=== PATIENT | male | born 1980 | race Two or more races ===

== ENCOUNTER 2025-10-01 18:35 | Emergency (ER) | payer MEDICAID, OTHER ==
[~2025-10-01] VITALS: Ht 172.7 cm; Wt 78.0 kg
[2025-10-01 19:37] LABS: Hematocrit 44.4 % (41.0-53.0); Hemoglobin 15.8 g/dL (13.5-17.5); Mean Corpuscular Hemoglobin 33.1 pg (28.0-32.0); Mean Corpuscular Volume 92.7 fL (80.0-100.0); Nucleated Red Blood Cells % 0.0 %
--- NOTE | 2025-10-01 19:46 | DVH ---
Exam: CT CT AB PEL WO CON-NO ORAL OR IV History: flank pain Comparison Study: None Technique: Multidetector spiral CT of the abdomen was performed from lung bases to pubic symphysis. Imaging was performed without IV contrast. Axial, coronal and sagittal multiplanar reformats were obtained from the axial data set by the technologist. Radiation Dose : 1. Abdomen/Pelvis: CTDIvol 11.2 mGy, DLP 637.59 mGy*cm. Findings: Evaluation of solid organs is limited due to lack of intravenous contrast use. Lung Bases: No acute or significant lung base finding. Normal heart size. No pleural or pericardial effusion. Liver: The liver is normal in size. No focal lesions. Gallbladder and Biliary Tree: Unremarkable Spleen: Unremarkable Pancreas: Unremarkable. Adrenal Glands: Unremarkable Kidneys: There is a 2 mm obstructing stone in the distal right ureter just proximal to the UVJ, resulting in mild right hydronephrosis. Bladder: Grossly unremarkable for degree of distention. Bowel: No acute bowel abnormality. Normal appendix. Ascites: Absent Lymphadenopathy: No mesenteric, retroperitoneal or periportal lymphadenopathy. Abdominal Wall and Mesentery: Unremarkable. Vasculature: The visualized abdominal aorta is normal in size and caliber. Evaluation of abdominal and pelvic vessels is limited due to lack of intravenous contrast. Pelvic Organs: Normal prostate. Musculoskeletal: No aggressive focal bony lesions, acute fractures or dislocation. IMPRESSION: 2 mm obstructing stone in the distal right ureter just proximal to the UVJ, resulting in mild right hydronephrosis. Radiation optimization: All CT scans at this facility use at least one of these dose optimization techniques: automated exposure control mA and/or kV adjustment per patient size (includes targeted exams where dose is matched to clinical indication) or iterative reconstruction.
[2025-10-01 19:50] LABS: Alanine Aminotransferase 27 U/L (7-40); Albumin 4.7 g/dL (3.2-4.8); Alkaline Phosphatase 79 U/L (46-116); Anion Gap 11 (5-15); BUN/Creatinine Ratio 13.3 (10.0-20.0); Blood Urea Nitrogen 14 mg/dL (9-23); Calcium 9.6 mg/dL (8.7-10.4); Carbon Dioxide 25 mmol/L (20-31); Chloride 104 mmol/L (98-107); Lipase 32 U/L (12-53); Potassium 4.4 mmol/L (3.5-5.1); Sodium 140 mmol/L (136-145); Total Protein 7.7 g/dL (5.7-8.2)
[2025-10-01 19:51] LABS: Bilirubin, Total 0.9 mg/dL (0.2-1.0)
[2025-10-01 19:56] VITALS: BP 133/84; PULSE 60; RESP 16; TEMP 98.3; O2SAT 99
[2025-10-01] MEDS: ONDANSETRON ODT 4 MG TAB PO ONE (20:01)
--- NOTE | 2025-10-01 20:05 | ED.PDOC ---
General HPI Comments 45-year-old male complains of sharp right flank and back pain for the last 2 days. Unprovoked. Worse with movement at times. Chief Complaint: Flank Pain Time Seen by MD: 18:48 Reviewed notes: Nurses Notes Allergies: Coded Allergies: NO KNOWN ALLERGIES (Unverified , 10/01/25) Home Meds Active Scripts Ketorolac Tromethamine (Ketorolac Tromethamine) 10 Mg Tab, 1 TAB PO TID PRN, #15 TAB Prov:VITOR QURESHI MD 10/01/25 Tamsulosin Hcl (Flomax) 0.4 Mg Cap, 1 CAP PO DAILY, #30 CAP 1 Refill Prov:VITOR QURESHI MD 10/01/25 Information Source: Patient Mode of Arrival: Ambulatory Severity: Moderate Timing: Days Past Medical History PAST MEDICAL HISTORY: Denies Social History Smoker: Non-Smoker Alcohol: Denies ETOH Use Drugs: Denies Drug Use Constitutional: reports: fatigue, malaise Gastrointestinal: reports: nausea, vomiting Genitourinary: reports: flank pain Musculoskeletal: reports: back pain All Other Systems: Reviewed and Negative Physical Exam General Appearance: Moderate Distress HEENT: Normal ENT Inspection, Pharynx Normal, TMs Normal Neck: Full Range of Motion, Non-Tender, Normal, Normal Inspection Respiratory: Chest Non-Tender, Lungs Clear, No Accessory Muscle Use, No Respiratory Distress, Normal Breath Sounds Cardiovascular: No Edema, No JVD, No Murmur, No Gallop, Normal Peripheral Pulses, Regular Rate/Rhythm Breast Exam: Deferred Gastrointestinal: No Organomegaly, Non Tender, No Pulsatile Mass, Normal Bowel Sounds, Soft Genitalia: Deferred Pelvic: Deferred Rectal: Deferred Extremities: No calf tenderness, Normal capillary refill, Normal inspection, Normal range of motion, Non-tender, No pedal edema Musculoskeletal : Apperance: Normal Neurologic: Alert, clothing presser II-XII nml as Tested, No Motor Deficits, Normal Affect, Normal Mood, No Sensory Deficits Cerebellar Function: Normal Reflexes: Normal Skin: Dry, Normal Color, Warm Lymphatic: No Adenopathy Was a procedure done? Was a procedure done?: No Differential Diagnosis Kidney stone (Female): AAA, Aortic dissection, Bowel obstruction, Hepatitis, Pancreatitis, Pyelonephritis, Renal failure, Urinary obstruction, Urolithiasis, Other X-Ray, Labs, Meds, VS Vital Signs Date Time Temp Pulse Resp B/P (MAP) Pulse Ox O2 Delivery O2 Flow Rate FiO2 10/01/25 19:56 60 16 99 Room Air 10/01/25 19:56 98.3 60 16 133/84 (100) 99 98.3 10/01/25 18:44 97.5 67 19 132/80 95 97.5 Lab Test 10/01/25 19:42 10/01/25 19:20 Range/Units Urine Color Yellow Yellow Urine Clarity Turbid H Clear Urine pH 6.5 5.0-9.0 Urine Specific [place] 1.026 1.001-1.035 Urine Protein Trace H Negative Urine Ketones 1+ H Negative Urine Blood 3+ H Negative /uL Urine Nitrite Negative Negative Urine Bilirubin Negative Negative Urine Urobilinogen Normal Negative mg/dL Urine Leukocyte Esterase Negative Negative /uL Urine RBC 913 0 - 3 /hpf Urine Microscopic WBC < 1 0-3 /HPF Urine Squamous Epithelial Cells None seen <5 /hpf Urine Bacteria None seen None Seen /hpf Urine Mucus Few None Seen Urine Glucose Normal Normal mg/dL White Blood Count 11.6 H 4.4-10.8 10^3/uL Red Blood Count 4.78 4.5-5.90 10^6/uL Hemoglobin 15.8 13.5-17.5 g/dL Hematocrit 44.4 41.0-53.0 % Mean Corpuscular Volume 92.7 80.0-100.0 fL Mean Corpuscular Hemoglobin 33.1 H 28.0-32.0 pg Mean Corpuscular Hemoglobin Concent 35.7 32.0-36.0 g/dL Red Cell Distribution Width 12.3 11.8-14.3 % Platelet Count 216 140-450 10^3/uL Mean Platelet Volume 8.2 6.9-10.8 fL Neutrophils (%) (Auto) 93.1 H 37.0-80.0 % Lymphocytes (%) (Auto) 4.4 L 10.0-50.0 % Monocytes (%) (Auto) 2.4 0.0-12.0 % Eosinophils (%) (Auto) 0.0 0.0-7.0 % Basophils (%) (Auto) 0.1 0.0-2.0 % Neutrophils # (Auto) 10.8 H 1.6-8.6 10 ^3/uL Lymphocytes # (Auto) 0.5 0.4-5.4 10 ^3/uL Monocytes # (Auto) 0.3 0-1.3 10 ^3/uL Eosinophils # (Auto) 0 0-0.8 10 ^3/uL Basophils # (Auto) 0 0-0.2 10 ^3/uL Nucleated Red Blood Cells 0.0 % Sodium Level 140 136-145 mmol/L Potassium Level 4.4 3.5-5.1 mmol/L Chloride Level 104 98-107 mmol/L Carbon Dioxide Level 25 20-31 mmol/L Anion Gap 11 5-15 Blood Urea Nitrogen 14 9-23 mg/dL Creatinine 1.05 0.700-1.30 mg/dL Glomerular Filtration Rate Calc 89 >90 mL/min BUN/Creatinine Ratio 13.3 10.0-20.0 Serum Glucose 139 H 74-106 mg/dL Calcium Level 9.6 8.7-10.4 mg/dL Total Bilirubin 0.9 0.2-1.0 mg/dL Aspartate Amino Transferase (AST) 21 13-40 U/L Alanine Aminotransferase (ALT) 27 7-40 U/L Alkaline Phosphatase 79 46-116 U/L Total Protein 7.7 5.7-8.2 g/dL Albumin 4.7 3.2-4.8 g/dL Lipase 32 12-53 U/L Current Medications Medications (Trade) Dose Ordered Sig/Noa Route Start Time Stop Time Status Last Admin Ondansetron HCl (Zofran Po) 8 mg ONCE ONCE PO 10/01/25 19:15 10/01/25 19:16 DC 10/01/25 20:01 Ketorolac Tromethamine (Toradol Injection) 30 mg ONCE ONCE IM 10/01/25 20:30 10/01/25 20:31 DC 10/01/25 20:32 Acetaminophen/ Hydrocodone Bitart ([place] 10/325MG Tab) 1 tab ONCE ONCE PO 10/01/25 20:30 10/01/25 20:31 DC 10/01/25 20:32 Tamsulosin HCl (Flomax) 0.4 mg ONCE ONCE PO 10/01/25 20:30 10/01/25 20:31 DC 10/01/25 20:31 Time of 1ST Reevaluation: 19:00 Reevaluation 1ST: Unchanged Patient Education/Counseling: Diagnosis, Treatment Family Education/Counseling: No Family Present SEPSIS Sepsis Screen Date sepsis recognized/suspect: Oct 01, 2025 Time Sepsis recognized/suspect: 1846 Recent Procedure: No On Antibiotic Therapy: No Respiratory Rate >20: No Heart Rate >90: No Temp<36 C (96.8 F) or >38.3 C: No SBP <90 or MAP <65 mmHG: No New Acute Mental Status Change: No Is the patient on CPAP, BIPAP,: No Physician Orders Ct Ab Pel Wo Con-No Oral Or Iv (10/01/25 19:07) Vital Signs Date Time Temp Pulse Resp B/P (MAP) Pulse Ox O2 Delivery O2 Flow Rate FiO2 10/01/25 19:56 60 16 99 Room Air 10/01/25 19:56 98.3 60 16 133/84 (100) 99 98.3 10/01/25 18:44 97.5 67 19 132/80 95 97.5 Laboratory Tests Test 10/01/25 19:20 White Blood Count 11.6 10^3/uL (4.4-10.8) H Medications Medications Dose Ordered Sig/Noa Route Start Time Stop Time Status Last Admin Dose Admin Acetaminophen/ Hydrocodone Bitart 1 tab ONCE ONCE PO 10/01/25 20:30 10/01/25 20:31 DC 10/01/25 20:32 Ketorolac Tromethamine 30 mg ONCE ONCE IM 10/01/25 20:30 10/01/25 20:31 DC 10/01/25 20:32 Ondansetron HCl 8 mg ONCE ONCE PO 10/01/25 19:15 10/01/25 19:16 DC 10/01/25 20:01 Tamsulosin HCl 0.4 mg ONCE ONCE PO 10/01/25 20:30 10/01/25 20:31 DC 10/01/25 20:31 Departure 1 Departure Time of Disposition: 21:00 Impression: Primary Impression: Right flank pain Additional Impression: Ureteral calculus, right Disposition: 01 HOME / SELF CARE / HOMELESS Condition: Stable e-Prescriptions Ketorolac Tromethamine (Ketorolac Tromethamine) 10 Mg Tab 1 TAB PO TID PRN, #15 TAB Prov: VITOR QURESHI MD 10/01/25 Tamsulosin Hcl (Flomax) 0.4 Mg Cap 1 CAP PO DAILY, #30 CAP 1 Refill Prov: VITOR QURESHI MD 10/01/25 Discharged With: Self Critical Care Note Critical Care Time?: No Stability Stability form required: No Heart Score Heart Score: Heart Score Response (Comments) Value History N/A 0 EKG N/A 0 Age N/A 0 Risk Factors N/A 0 Troponin N/A 0 Total 0 VITOR QURESHI MD Oct 01, 2025 20:05
[2025-10-01] MEDS: TAMSULOSIN HYDROCHLORIDE 0.4 MG CAP PO ONE (20:31)
[2025-10-01] MEDS: HYDROcodone-ACET 10/325MG TAB PO ONE (20:32)
[2025-10-01] MEDS: KETOROLAC TROMETH 30 MG/ML 1ML VIAL IM ONE (20:32)
[2025-10-01 20:35] LABS: Urine Protein, UAD TRACE (Negative)
[2025-10-01 20:41] LABS: Glucose 139 mg/dL (74-106)
[2025-10-01] MEDS ORDERED: KETO10TA PO (20:55)
[2025-10-01] MEDS ORDERED: TAMS-35 PO (20:55)
== END 2025-10-01 20:55 | disposition home or self-care (01) ==
LOC: ER 18:35
DX: N20.1 Calculus of ureter (principal); M54.9 Dorsalgia, unspecified
CPT/HCPCS: 36415; 74176; 80053; 81001; 83690; 85025; 96372; 99285; J1885; Q0162